=== PATIENT | male | born 1995 | race Caucasian/White ===

== ENCOUNTER 2017-08-12 21:11 | Emergency (ER) | payer OTHER ==
[~2017-08-12] VITALS: Ht 175.3 cm; Wt 84.2 kg
[2017-08-12 21:14] VITALS: TEMP 36.8; Ht 175.3 cm; Wt 84.2 kg
[2017-08-12] MEDS ORDERED: XYLOCAINE 1%/SOD BICARB 20 ML VIAL INFIL ONE (21:30)
--- NOTE | 2017-08-12 21:55 | EMERGENCY ROOM VISIT NOTE ---
ED Visit Note First contact with patient: 21:16 CHIEF COMPLAINT: Left fourth finger laceration 20 minutes ago HISTORY OF PRESENT ILLNESS: Patient is a [id number] 21-year-old male who presents the emergency department accompanied by female friend for evaluation of a laceration to the left fourth finger that he sustained about 20 minutes ago while he was cutting an avocado. The bleeding has stopped. Denies weakness or numbness of the finger. REVIEW OF SYSTEMS: Review of systems as per HPI. All other systems reviewed were negative. At least 6 systems reviewed. PMH: Electronic medical records are reviewed and summarized as above/below. See Problem List. Tetanus is up-to-date. SOCIAL HISTORY: Patient lives at home. 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 Non- smoker. PHYSICAL EXAM: Vital Signs: Reviewed Nurse's notes. There is a 2 cm long laceration on the dorsal radial aspect of the left fourth finger over the proximal phalanx. Laceration does not cross the joint line. The edges gape apart with traction. There is no foreign material in the wound and it looks clean. There is no bleeding. No deep structures such as tendons or nerves are seen in the base of the wound. Extension and flexion of the finger is full and strong when isolated at the MCP, PIP and DIP joints. EMERGENCY DEPARTMENT COURSE: Using sterile technique, saline and Betadine cleansing, and 1% lidocaine anesthesia, the laceration was repaired with 5, 5-0 nylon sutures. Bacitracin and a light dressing were applied. Patient tolerated the procedure well. There is no evidence for nerve, vascular or tendinous injury. Medication reconciliation: I attest that I have personally reviewed the patient' s current medication list. Blood pressure screening : Patient was found to have normal blood pressure on screening and does not require follow-up. Current/Historical Medications No Active Prescriptions or Reported Meds Allergies Coded Allergies: No Known Allergies (Unverified , 08/12/17) Vital Signs Date Time Temp Pulse Resp B/P (MAP) Pulse Ox O2 Delivery O2 Flow Rate FiO2 08/12/17 22:05 89 20 133/74 98 08/12/17 21:14 36.8 74 20 151/84 100 Room Air Departure Information Impression Primary Impression: Laceration of finger Prescriptions No Active Prescriptions or Reported Meds Referrals No Doctor, Assigned (PCP) Patient Instructions My [facility] Additional Instructions Keep wound clean and dry. Do not allow any crusting or dried blood to accumulate on sutures. Clean gently with mild soap and water. Use an antibiotic ointment for 3-4 days, then let wound dry. Suture removal in 10-12 days. Return sooner for any signs of infection (increasing redness, swelling, drainage). Ice and elevate for swelling and pain. Ibuprofen 600 mg and Tylenol 1000 mg every 6 hrs for pain. Problem Qualifiers Primary Impression: Laceration of finger Encounter type: initial encounter Finger: ring finger Damage to nail status : without damage Foreign body presence: without foreign body Laterality: left Qualified Codes: S61.215A - Laceration without foreign body of left ring finger without damage to nail, initial encounter
[2017-08-12 22:05] VITALS: BP 133/74; PULSE 89; O2SAT 98
== END 2017-08-12 22:06 | disposition home or self-care (01) ==
LOC: C.EDB 21:12 → C.EDD 22:06
DX: S61.215A Laceration without foreign body of left ring finger without damage to nail, initial encounter (principal); W26.0XXA Contact with knife, initial encounter